=== PATIENT | male | born 1980 | race Caucasian/White ===

== ENCOUNTER 2018-09-15 09:30 | Emergency (ER) | payer SELFPAY ==
--- NOTE | 2018-09-15 10:21 | RAD ---
EXAM DESCRIPTION: Knee,Right Complete CLINICAL HISTORY: 38 years Male, patellar bursitis after trauma COMPARISON: None. FINDINGS: Three views of the right knee show no acute fracture or malalignment. No joint effusion. No joint space narrowing. Prominent prepatellar soft tissue swelling without radiopaque foreign body or soft tissue gas. IMPRESSION: Prepatellar soft tissue swelling consistent with prepatellar bursitis or contusion. Otherwise unremarkable exam. Electronically signed by: Maurice Leos MD 09/15/2018 10:18 AM CDT
[2018-09-15] MEDS ORDERED: HYDROcodone 7.5MG/APAP 325MG 1 EA TAB PO ONE (10:33)
[2018-09-15] MEDS ORDERED: SULFA/TRIMETH 800/160 (DS) TAB 1 EA TAB PO ONE (10:33)
[2018-09-15 10:36] VITALS: O2SAT 97
--- NOTE | 2018-09-15 10:38 | ED.PDOC ---
History of Present Illness - General Chief Complaint: General Time Seen by Provider: 09/15/18 09:32 Source: patient Exam Limitations: no limitations - History of Present Illness Initial Comments: Patient is a 38-year-old male presenting to emergency room secondary to swelling of the patellar bursa. He fell on the knee about 2 weeks ago and has had swelling but last night he felt like the swelling became significantly more. There is very mild erythema. No significant increased warmth. Range of motion is preserved. No tenderness elsewhere. No extending erythema. No fevers. Timing/Duration: unsure Severity: moderate Improving Factors: nothing Worsening Factors: movement Associated Symptoms: denies symptoms Home Medications: Ambulatory Orders Sulfa/Trimeth 800/160 (Ds) Tab [Bactrim DS Tab] 1 ea PO BID #14 tab 09/15/18 Tramadol HCl 50 mg PO Q8HR PRN #20 tab 09/15/18 Review of Systems - Review of Systems Constitutional: States: no symptoms reported EENTM: States: no symptoms reported Respiratory: States: no symptoms reported Cardiology: States: no symptoms reported Gastrointestinal/Abdominal: States: no symptoms reported Genitourinary: States: no symptoms reported Musculoskeletal: States: see HPI Skin: States: no symptoms reported Neurological: States: no symptoms reported Endocrine: States: no symptoms reported All other Systems: No Change from Baseline Family Medical History - Family History Father Living Status: Still Living Hx Family;Other: anxiety Physical Exam - Physical Exam General Appearance: Alert, Comfortable, No apparent distress Eye Exam: bilateral normal Ears, Nose, Throat: hearing grossly normal Neck: full range of motion Respiratory: no respiratory distress, no accessory muscle use Cardiovascular/Chest: normal peripheral pulses, no edema Peripheral Pulses: dorsalis pedis,right: 2+, dorsalis pedis,left: 2+ Rectal Exam: deferred Back Exam: normal inspection Extremity: normal range of motion, no pedal edema, no calf tenderness, normal capillary refill, other - C history of present illness. 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 After risks and benefits were explained and the area was cleaned with alcohol withdrawal 10 cc of bloody fluid. We are going to culture this. The patient is currently placed on Bactrim twice a day empirically for the next 7 days. He does need to try to avoid putting pressure directly on that knee. He'll be written for tramadol for as needed use. Monitor for any evidence of any extending infection. x-ray of the knee here today shows no evidence of any fracture. Follow-up with primary care doctor in 1 week. ER warnings were given. Departure - Departure Clinical Impression: Patellar bursitis of left knee Disposition: Discharge to Home or Self Care Condition: Fair Departure Forms: ED Discharge - Pt. Copy, Patient Portal Self Enrollment Instructions: Bursitis (DC) Diet: regular diet Activity: other Prescriptions: Tramadol HCl 50 mg PO Q8HR PRN #20 tab PRN Reason: Moderate Pain Sulfa/Trimeth 800/160 (Ds) Tab [Bactrim DS Tab] 1 ea PO BID #14 tab Home Medications: Ambulatory Orders Sulfa/Trimeth 800/160 (Ds) Tab [Bactrim DS Tab] 1 ea PO BID #14 tab 09/15/18 Tramadol HCl 50 mg PO Q8HR PRN #20 tab 09/15/18 Additional Instructions: the patient's a 38-year-old male presenting to emergency room secondary to patellar bursitis on the left is likely traumatic. After risks and benefits were explained and the area was cleaned with alcohol withdrawal 10 cc of bloody fluid. We are going to culture this. The patient is currently placed on Bactrim twice a day empirically for the next 7 days. He does need to try to avoid putting pressure directly on that knee. He'll be written for tramadol for as needed use. Monitor for any evidence of any extending infection. x-ray of the knee here today shows no evidence of any fracture. Follow-up with primary care doctor in 1 week. ER warnings were given.
[2018-09-15 10:54] VITALS: BP 112/72; TEMP 98.1
== END 2018-09-15 10:51 | disposition home or self-care (01) ==
LOC: ER 09:30
DX: M70.52 Other bursitis of knee, left knee (principal)